=== PATIENT | female | born 1985 | race Caucasian/White ===

== ENCOUNTER → 2021-01-02 18:08 | Outpatient (CLI) | payer OTHER, SELFPAY ==
--- NOTE | 2021-01-02 18:17 | DI.MRI.S_ITS ---
PROCEDURE: MR KNEE LT WO CON INDICATIONS: UNSPECIFIED INTERNAL DERANGEMENT OF LEFT KNEE TECHNIQUE: Noncontrast sagittal PD fast spin echo and T2 fast spin echo with fat saturation, sagittal 3-D FLASH with fat saturation; coronal T1 spin echo and PD fast spin echo with fat saturation, and axial PD fast spin echo with fat saturation through the knee. COMPARISON: None. FINDINGS: Image quality: Excellent. Menisci: Amorphous and linear high signal intensity within the anterior horn, body, and posterior horn medial meniscus is present which demonstrates vague inferior articular surface extension (series 10, image 20), indicating complex tearing. Lateral meniscus is intact. Cruciate ligaments: The anterior and posterior cruciate ligaments appear intact. Medial structures: The medial collateral ligament appears intact. Visualized portions of the pes anserinus tendons appear normal. No abnormal bursal fluid. Lateral structures: The lateral collateral ligament, long and short heads of the biceps femoris tendon appear intact. The popliteus tendon appears normal. Iliotibial band appears normal. Anterior structures: The quadriceps and patellar tendons appear intact mild lateral patellar subluxation. No femoral trochlear dysplasia or ventral trochlear prominence. Moderate edema in the superolateral aspect of the infrapatellar fat pad. Bones and cartilage: No bone marrow contusions or fractures. The cartilage of the medial and lateral femorotibial compartments, as well as the patellofemoral compartment, appears normal in thickness. Joint space: There is physiologic knee joint fluid. No Dickson's cyst. Normal appearing synovial plicae are incidentally noted. IMPRESSION: 1. Findings consistent with mild/early lateral patellofemoral friction syndrome in the appropriate clinical setting. 2. Complex tearing of the medial meniscus. Dictated by: Tomasz Sultana M.D. on 01/03/2021 at 9:10 Approved by: Tmoasz Sultana M.D. on 01/03/2021 at 9:12
== END ==
PROVIDERS: Referring Provider Orthopaedic Surgery Adult Reconstructive Orthopaedic Surgery; Visit Provider Orthopaedic Surgery Adult Reconstructive Orthopaedic Surgery
DX: S83.232A Complex tear of medial meniscus, current injury, left knee, initial encounter (principal)
CPT/HCPCS: 73721

== ENCOUNTER → 2021-02-21 17:30 | Outpatient (CLI) | payer OTHER, SELFPAY ==
--- NOTE | 2021-02-21 17:31 | DI.MRI.S_ITS ---
PROCEDURE: MR ANKLE RT WO CON INDICATIONS: RIGHT ANKLE PAIN TECHNIQUE: Noncontrast sagittal T1 spin echo and T2 fast spin echo with fat saturation, axial proton density fast spin echo and T2 fast spin echo with fat saturation, coronal T1 spin echo and T2 fast spin echo with fat saturation through the ankle/hindfoot. COMPARISON: [facility], CR, XR ANKLE 3 VIEWS WEIGHT BEARING RIGHT, 01/24/2021, 16:49. FINDINGS: Bones and joints: No bone marrow contusions or fractures. No hindfoot coalitions. There is subchondral cystic change marrow edema at the medial talar dome. Overall this measures approximately 1.1 cm on coronal pulse sequences. No definite in situ fragment. However there is some 3-4 mm curvilinear signal change seen on image 14/7. No pathologic joint effusions. Medial structures: Posterior tibialis intact. Flexor digitorum longus intact. There is mild flexor digitorum longus tenosynovitis. Flexor hallucis longus tendon intact. The posterior tibial neurovascular bundle appears normal within the tarsal tunnel, without extrinsic mass effect. Deltoid ligament complex appears intact. The spring ligament appears intact. Lateral structures: Anterior talofibular ligament intact. Calcaneofibular ligament intact. Posterior talofibular ligament intact. Anterior and posterior tibiofibular ligaments appear intact, as is the intermalleolar ligament. Tibiofibular syndesmosis is normal in width at 2 mm or less. Peroneus longus and brevis tendons appear normal. Bony peroneal tubercle and retrotrochlear prominence are normal in size. Sinus tarsi demonstrates normal fatty signal, without edema, fibrosis, or cyst formation. Anterior structures: Tibialis anterior intact. Extensor hallucis longus intact. Extensor digitorum longus tendon intact. Dorsal talonavicular ligament appears intact. Posterior and plantar structures: Achilles tendon is intact. Medial and lateral bands of the plantar fascia intact. No abductor digiti quinti muscle atrophy to suggest Fregoso neuropathy. IMPRESSION: Subchondral marrow signal changes involving the medial talar dome, with partial curvilinear appearance as detailed above which raising the possibility of early osteochondritis desiccans although technically nonspecific. Continued short interval radiographic surveillance could be considered as clinically necessary. Differential includes osteochondral impaction fracture if there is history of trauma. Mild flexor digitorum longus tenosynovitis. Dictated by: Martell Posey M.D. on 02/22/2021 at 8:23 Approved by: Martell Posey M.D. on 02/22/2021 at 8:36
== END ==
PROVIDERS: Referring Provider Orthopaedic Surgery Foot and Ankle Surgery; Visit Provider Orthopaedic Surgery Foot and Ankle Surgery
DX: M25.571 Pain in right ankle and joints of right foot (principal); M65.871 Other synovitis and tenosynovitis, right ankle and foot
CPT/HCPCS: 73721

== ENCOUNTER → 2021-07-26 19:59 | Outpatient (CLI) | payer OTHER, SELFPAY ==
--- NOTE | 2021-07-26 | DI.MRI.S_ITS ---
PROCEDURE: MR CERVICAL SPINE WO CON INDICATIONS: spinal stenosis, cervical region TECHNIQUE: Noncontrast sagittal T1 spin echo and T2 fast spin echo, sagittal STIR, foraminal oblique sagittal T2 fast spin echo, and axial gradient echo or T2 fast spin echo through the cervical spine. COMPARISON: None. FINDINGS: Image quality: Excellent. Alignment and Curvature: There is normal bony alignment. Mild reversal of normal lordotic curve of the cervical spine may be positional or represent muscle spasm. Bone Marrow: Marrow demonstrates normal overall signal. Spinal Cord: Visualized spinal cord has normal size and signal. No cerebellar tonsillar herniation. Paraspinous Soft Tissues: No paravertebral masses. Prevertebral soft tissues are normal in thickness. C2-C3: No canal stenosis or foraminal stenosis. C3-C4: No canal stenosis or foraminal stenosis. C4-C5: Minimal left paracentral disc protrusion without canal stenosis. No foraminal stenosis. C5-C6: Mild left paracentral disc protrusion abutting the cord without canal stenosis. No foraminal stenosis. C6-C7: No canal stenosis or foraminal stenosis. C7-T1: No canal stenosis or foraminal stenosis. IMPRESSION: 1. There is a mild left paracentral disc protrusion at C5-C6, which abuts the cord, without canal stenosis. 2. Minimal left paracentral disc protrusion at C4-C5 without canal stenosis. 3. No canal stenosis or foraminal stenosis. Dictated by: Leo Alvarado M.D. on 07/27/2021 at 9:58 Approved by: Leo Alvarado M.D. on 07/27/2021 at 10:05
== END ==
PROVIDERS: Referring Provider Physical Medicine & Rehabilitation; Visit Provider Physical Medicine & Rehabilitation
DX: M48.02 Spinal stenosis, cervical region (principal); M50.220 Other cervical disc displacement, mid-cervical region, unspecified level
CPT/HCPCS: 72141

== ENCOUNTER 2021-10-04 12:29 | Emergency (ER) | payer OTHER, SELFPAY ==
[2021-10-04 12:37] VITALS: BP 141/106; PULSE 100; RESP 16; TEMP 36.7; O2SAT 99; BMI 26.6
[2021-10-04] MEDS: CYCLOBENZAPRINE 10 MG TABLET PO (13:28)
[2021-10-04] MEDS: KETOROLAC 30 MG/ML VIAL IM (13:28)
--- NOTE | 2021-10-04 13:32 | ED_ITS ---
HPI - Neck Pain/Injury <Bobo Neumann PA-C - Last Filed: 10/04/21 19:41> General Chief Complaint: Neck Pain/Injury Stated Complaint: Neck is Stuck, Can't Twist Head Time Seen by Provider: 10/04/21 12:49 Mode of arrival: Ambulatory History of Present Illness HPI Narrative: Patient is a 35-year-old female with a history of C4-C5 C5-C6 disc protrusions presenting to the emergency department today for evaluation right sided neck pain that began 4 days ago. Patient states that she began to experience muscle spasming in her right shoulder 4 days ago with pain, but she notes that today she awoke unable to turn her head. She explains that pain has since traveled down to her right arm just above the elbow. Of note, patient took a dosage of Relafen last night at approximately 2100. Patient denies fever, chills, chest pain, shortness of breath, cough, nausea, vomiting, diarrhea, dysuria, photophobia, changes in vision. No other concerns voiced at this time. Related Data Previous Rx's Medication Instructions Recorded cyclobenzaprine 10 mg tablet 10 mg PO TID PRN #20 tab 10/04/21 cyclobenzaprine 10 mg tablet 10 mg PO TID PRN #20 tab 10/04/21 cyclobenzaprine 10 mg tablet 10 mg PO TID PRN #20 tab 10/04/21 Allergies Allergy/AdvReac Type Severity Reaction Status Date / Time No Known Drug Allergies Allergy Verified 10/04/21 13:28 Review of Systems <Bobo Neumann PA-C - Last Filed: 10/04/21 19:41> Constitutional Constitutional: Denies chills, Denies fatigue, Denies fever(s), Denies frequent falls, Denies lethargy and Denies weakness Eyes Eyes: Denies loss of vision ENT Ears, Nose, Mouth, and Throat: Denies change in voice, Denies dizziness, Reports neck pain, Denies sore throat and Denies throat swelling Cardiovascular Cardiovascular: Denies chest pain, Denies irregular heart rhythm, Denies lightheadedness, Denies palpitations, Denies dyspnea, Denies dyspnea on exertion and Denies orthopnea Respiratory Respiratory: Denies cough, Denies dyspnea, Denies dyspnea on exertion and Denies wheezing Gastrointestinal Gastrointestinal: Denies abdominal pain, Denies change in bowel habits, Denies diarrhea, Denies nausea and Denies vomiting Genitourinary Genitourinary: Denies hematuria, Denies flank pain, Denies urinary incontinence and Denies urinary urgency Musculoskeletal Musculoskeletal: Denies back pain, Denies muscle weakness, Reports neck pain, Denies numbness, Reports radiating pain into limb (Right shoulder and arm) and Denies tingling Neurologic Neurologic: Denies behavioral changes, Denies confusion, Denies dizziness, Denies frequent falls, Denies loss of vision, Denies numbness, Denies tingling and Denies weakness Psychiatric Psychiatric: Denies behavioral changes and Denies confusion Endocrine Endocrine: Denies fatigue and Denies palpitations Allergic/Immunologic Allergic/Immunologic: Denies urticaria, Denies throat swelling and Denies wheezing Patient History <Bobo Neumann PA-C - Last Filed: 10/04/21 19:41> Social History Smoking Status: Never smoker Smoking Status: Never smoker alcohol intake frequency: 0-2 drinks per day Substance Use Type: does not use Exam <Bobo Neumann PA-C - Last Filed: 10/04/21 19:41> Narrative Exam Narrative: GENERAL: 35 year old patient appears stated age. Well-developed patient, in mild distress. HEAD: Atraumatic. Normocephalic. EYES: Pupils equal round and reactive. Extraocular motions intact. No scleral icterus. No injection or drainage. No appreciable photophobia. ENT: Nose without bleeding, purulent drainage. Throat without erythema, tonsillar hypertrophy or exudate. Airway patent. NECK: Trachea midline. Tenderness to palpation appreciated over the right sternocleidomastoid muscle. Pain with turning the head to the right. CARDIOVASCULAR: Regular rate and rhythm without murmurs, gallops, or rubs. RESPIRATORY: Clear to auscultation. Breath sounds equal bilaterally. No wheezes, rales, or rhonchi. GASTROINTESTINAL: Abdomen soft, non-tender, nondistended. EXTREMITIES: No edema or joint tenderness. Mild tenderness to palpation appreciated over the right anterior deltoid and right trapezius muscles. Negative Kernig sign. The knees bent at 90? at rest. BACK: Nontender without deformity or crepitance. No flank tenderness. NEURO: AOx3. SKIN: No rash or erythema of visible areas Initial Vital Signs Initial Vital Signs: Vital Signs Temperature 98.1 F 10/04/21 12:37 Pulse Rate 100 H 10/04/21 12:37 Respiratory Rate 16 10/04/21 12:37 Blood Pressure 141/106 H 10/04/21 12:37 Pulse Oximetry 99 10/04/21 12:37 <Yeni Ya MD - Last Filed: 10/14/21 18:49> Initial Vital Signs Initial Vital Signs: Vital Signs Temperature 98.1 F 10/04/21 12:37 Pulse Rate 100 H 10/04/21 12:37 Respiratory Rate 16 10/04/21 12:37 Blood Pressure 141/106 H 10/04/21 12:37 Pulse Oximetry 99 10/04/21 12:37 Course <Bobo Neumann PA-C - Last Filed: 10/04/21 19:41> Course Course Narrative: Intramuscular Toradol and p.o. Flexeril administered. Orders Ordered: Discontinued Medications Cyclobenzaprine HCl (Cyclobenzaprine 10 Mg Tablet) 10 mg PO NOW ONE Stop: 10/04/21 13:21 Last Admin: 10/04/21 13:28 Dose: 10 mg Documented by: TRACY Ketorolac Tromethamine (Ketorolac 30 Mg/Ml Vial) 30 mg IM NOW ONE Stop: 10/04/21 13:21 Last Admin: 10/04/21 13:28 Dose: 30 mg Documented by: TRACY Lorazepam (Lorazepam 0.5 Mg Tablet) 1 mg PO NOW ONE Stop: 10/04/21 14:04 Last Admin: 10/04/21 14:10 Dose: 1 mg Documented by: TRACY Reevaluation(s) Reevaluation #1: Patient states that she is feeling better after administration of Toradol, Flexeril, and Ativan. She states that she feels comfortable being discharged home. Time: 14:39 Vital Signs Vital signs: Vital Signs - 8 hr 10/04/21 12:37 10/04/21 15:00 Temperature 98.1 F Pulse Rate 100 H 64 Respiratory Rate 16 16 Blood Pressure 141/106 H 116/72 Pulse Oximetry 99 99 <Yeni Ya MD - Last Filed: 10/14/21 18:49> Orders Ordered: Discontinued Medications Cyclobenzaprine HCl (Cyclobenzaprine 10 Mg Tablet) 10 mg PO NOW ONE Stop: 10/04/21 13:21 Last Admin: 10/04/21 13:28 Dose: 10 mg Documented by: TRACY Ketorolac Tromethamine (Ketorolac 30 Mg/Ml Vial) 30 mg IM NOW ONE Stop: 10/04/21 13:21 Last Admin: 10/04/21 13:28 Dose: 30 mg Documented by: TRACY Lorazepam (Lorazepam 0.5 Mg Tablet) 1 mg PO NOW ONE Stop: 10/04/21 14:04 Last Admin: 10/04/21 14:10 Dose: 1 mg Documented by: TRACY Vital Signs Vital signs: Vital Signs - 8 hr 10/04/21 12:37 10/04/21 15:00 Temperature 98.1 F Pulse Rate 100 H 64 Respiratory Rate 16 16 Blood Pressure 141/106 H 116/72 Pulse Oximetry 99 99 MDM - Neck Pain/Injury <Bobo Neumann PA-C - Last Filed: 10/04/21 19:41> MDM Narrative Medical decision making narrative: Patient is a 35-year-old female with a history of C4-C5 C5-C6 disc protrusions presenting to the emergency department today for evaluation right sided neck p ain that began 4 days ago. To consider torticollis versus meningitis versus sprain versus strain. Overall physical examination and history are reassuring. Patient had a negative Kernig sign and did not display signs of photophobia. Additionally, she has remained afebrile in the emergency department today. Discussed with the patient the likelihood that she is experiencing torticollis gave her strict return precautions to return to the emergency department if symptoms worsen. Strict return precautions discussed with patient prior to discharge. Discharge Plan Departure Patient Disposition: Home Clinical Impression: Torticollis, Elevated blood pressure reading Instructions: DI for Torticollis Activity Restrictions/Additional Instructions: *You have been diagnosed with torticollis *What to do: *Please continue to take your regular medications as directed. [X] New medication prescriptions sent to your pharmacy: [facility] - Flexeril, Toradol [ ] New medication written as a paper prescription [ ] No new medications given *Please follow up with your primary care provider within the next 24-48 hours, call for an appointment. Let them know you were seen in the Emergency Department and that we ask that you be seen in follow up. We will electronically transmit a record of today's note if your PCP is in our system. *If you do not have a primary care provider please contact the [facility] Resource line at [phone]. They will ask some questions about your medical history and help get you set up with a doctor in the community. *Return to Emergency Department if you should have any new, worsening or concerning symptoms, such as fever greater than 101 F, shaking chills, worsening pain, sensitivity to light, persistent vomiting or other bothersome symptoms. Prescriptions: New cyclobenzaprine 10 mg tablet 10 mg PO TID PRN (Reason: muscle spasm) Qty: 20 0RF cyclobenzaprine 10 mg tablet 10 mg PO TID PRN (Reason: muscle spasm) Qty: 20 0RF cyclobenzaprine 10 mg tablet 10 mg PO TID PRN (Reason: muscle spasm) Qty: 20 0RF <Yeni Ya MD - Last Filed: 10/14/21 18:49> [facility]: I was immediately available in the department for consultation throughout this patient's visit. I agree with documentation as above. Yeni Ya MD
[2021-10-04] MEDS: LORazepam 0.5 MG TABLET 1 MG PO (14:10)
[2021-10-04 15:00] VITALS: BP 116/72; PULSE 64; RESP 16; O2SAT 99
== END 2021-10-04 15:10 | disposition home or self-care (01) ==
PROVIDERS: Emergency Provider Physician Assistant
DX: M43.6 Torticollis (principal); R03.0 Elevated blood-pressure reading, without diagnosis of hypertension
CPT/HCPCS: 96372; 99283; 99284; J1885